=== PATIENT | male | born 1930 | race Caucasian/White ===

== ENCOUNTER 2017-03-01 21:42 | Emergency (ER) | payer MEDICARE, OTHER ==
[~2017-03-01] VITALS: Ht 162.6 cm; Wt 70.0 kg
[~2017-03-01 21:42] MED LIST: AZIT250T43 PO
[2017-03-01 22:39] VITALS: BP 135/83; PULSE 98; RESP 18; TEMP 98; O2SAT 98
--- NOTE | 2017-03-01 23:19 | PD ---
HPI Chief Complaint: Fall Time Seen by Provider: 22:50 Travel History International Travel<30 days: No Contact w/Intl Traveler<30days: No Traveled to known affect area: No History of Present Illness HPI 87yo M with PMH of dementia presents to the ED after pressing the life alert today. History is different from what triage note said from [facility]. Pt's care giving is with him and she said she was with him from 8am to 8pm today. Then he said he got out of his walker and was crawling in his garage but was not able to get up so press his life alert. He denies any fall and has no signs of trauma. Pt is AAOx2 and is at baseline mental status as per rn patient care. Denies any complaints. Denies any fever, chest pain, sob, n/v, abdominal pain, focal weakness or numbness. PFSH Past Medical History Blood Disorders: No Cancer: No Cardiovascular Problems: Yes (cabg) Chemotherapy: No Diminished Hearing: Yes Endocrine: No Genitourinary: Yes Hepatitis: Yes (HEP B [place] 1960) Immune Disorder: No Musculoskeletal: No Neurologic: No Psychiatric: No Reproductive: No Respiratory: No Radiation Therapy: No Tetanus Vaccination: < 5 Years Influenza Vaccination: No Past Surgical History Abdominal Surgery: No AICD: No Appendectomy: Yes Arteriovenous Shunt: No Cardiac Surgery: Yes (CABG 5 VESSELS) Ear Surgery: No Endocrine Surgery: No Eye Surgery: No Genitourinary Surgery: No Gynecologic Surgery: No Insulin Pump: No Joint Replacement: No Oral Surgery: No Pacemaker: No Thoracic Surgery: No Tonsillectomy: Yes Other Surgery: Yes (LUMP UNDER ARMPIT REMOVED (?)) Social History Alcohol Use: Yes (socially) Tobacco Use: No Substance Use: No Allergies-Medications (Allergen,Severity, Reaction): Coded Allergies: No Known Allergies (Verified , 03/01/17) Reported Meds & Prescriptions Reported Meds & Active Scripts Active No Active Prescriptions or Reported Medications Review of Systems Except as stated in HPI: all other systems reviewed are Neg Physical Exam Narrative GENERAL: 87yo M not in distress. SKIN: Focused skin assessment warm/dry. HEAD: Atraumatic. Normocephalic. EYES: Pupils equal and round. No scleral icterus. No injection or drainage. ENT: No nasal bleeding or discharge. Mucous membranes pink and moist. NECK: Trachea midline. No JVD. No midline cervical spine ttp. CARDIOVASCULAR: Regular rate and rhythm. No murmur appreciated. RESPIRATORY: No accessory muscle use. Clear to auscultation. Breath sounds equal bilaterally. GASTROINTESTINAL: Abdomen soft, non-tender, nondistended. No rebound tenderness or guarding. BACK: No midline ttp thoracic or lumbar spine. MUSCULOSKELETAL: No obvious deformities. No clubbing. No cyanosis. No edema. NEUROLOGICAL: AAOx2. Right eyelid more droopy than left but rn patient care said that is not new. Motor grossly within normal limits in all extremities. Sensation intact and equal. Normal speech. Data Data Last Documented VS Vital Signs Date Time Temp Pulse Resp B/P (MAP) Pulse Ox O2 Delivery O2 Flow Rate FiO2 03/01/17 22:39 98.0 98 18 135/83 (100) 98 Orders Orders Complete Blood Count With Diff (03/01/17 23:01) Basic Metabolic Panel (Bmp) (03/01/17 23:01) Creatine Kinase (Cpk) (03/01/17 23:01) Urinalysis - C+S If Indicated (03/02/17 00:10) Urine Culture (03/02/17 00:35) Nitrofurantoin Monohyd Macrocr (Macrobid (03/02/17 01:30) Labs Laboratory Tests Test 03/01/17 23:06 03/02/17 00:35 White Blood Count 12.3 TH/MM3 Red Blood Count 4.26 MIL/MM3 Hemoglobin 13.1 GM/DL Hematocrit 40.0 % Mean Corpuscular Volume 93.7 FL Mean Corpuscular Hemoglobin 30.7 PG Mean Corpuscular Hemoglobin Concent 32.7 % Red Cell Distribution Width 14.1 % Platelet Count 222 TH/MM3 Mean Platelet Volume 9.2 FL Neutrophils (%) (Auto) 84.1 % Lymphocytes (%) (Auto) 7.4 % Monocytes (%) (Auto) 7.7 % Eosinophils (%) (Auto) 0.5 % Basophils (%) (Auto) 0.3 % Neutrophils # (Auto) 10.4 TH/MM3 Lymphocytes # (Auto) 0.9 TH/MM3 Monocytes # (Auto) 0.9 TH/MM3 Eosinophils # (Auto) 0.1 TH/MM3 Basophils # (Auto) 0.0 TH/MM3 CBC Comment DIFF FINAL Differential Comment Blood Urea Nitrogen 23 MG/DL Creatinine 1.01 MG/DL Random Glucose 93 MG/DL Calcium Level 9.5 MG/DL Sodium Level 142 MEQ/L Potassium Level 4.1 MEQ/L Chloride Level 105 MEQ/L Carbon Dioxide Level 28.8 MEQ/L Anion Gap 8 MEQ/L Estimat Glomerular Filtration Rate 70 ML/MIN Total Creatine Kinase 141 U/L Urine Color YELLOW Urine Turbidity HAZY Urine pH 5.5 Urine Specific Rough [place] Ready 1.024 Urine Protein TRACE mg/dL Urine Glucose (UA) NEG mg/dL Urine Ketones 10 mg/dL Urine Occult Blood NEG Urine Nitrite NEG Urine Bilirubin NEG Urine Urobilinogen LESS THAN 2.0 MG/DL Urine Leukocyte Esterase LARGE Urine RBC 15 /hpf Urine WBC 50 /hpf Urine Amorphous Sediment RARE Urine Bacteria OCC /hpf Urine Hyaline Casts 5 /lpf Urine Mucus FEW /lpf Microscopic Urinalysis Comment CULTURE INDICATED MDM Medical Decision Making Medical Screen Exam Complete: Yes Emergency Medical Condition: Yes Interpretation(s) EKG: NSR 84bpm. LAD. No ST segment elevation or depression Differential Diagnosis Rhabdomyolysis vs. electrolyte abnormality vs. dehydration Narrative Course 87yo M with dementia here because he was not able to get up in his garage so press his life alert. Pt is well appearing and denies any fall. He is AAOx2 and as per rn patient care, is at his baseline mental status. Labs reviewed, mild leukocytosis at 12.3. BUN mildly elevated at 23. Pt can replace fluids orally. CPK is normal and creatinine is normal. UA positive for large leukocyte. WBC 50. Pt given first dose of macrobid. He is well appearing, will give prescriptions and have him follow up with PMD. Return precautions given. Diagnosis Primary Impression: UTI (urinary tract infection) Qualified Codes: N39.0 - Urinary tract infection, site not specified Patient Instructions: General Instructions Departure Forms: Tests/Procedures Additional Instructions: Please follow up with your primary care physician in 3-7 days. Return to the ED if symptoms worsen. Med/Other Pt SpecificInfo: Prescription(s) given Scripts Nitrofurantoin Monohydrate Macrocrystals (Macrobid) 100 Mg Cap 100 MG PO BID for Infection for 5 Days, CAP 0 Refills Prov: Jennifer Woods DO 03/02/17 Disposition: 01 DISCHARGE HOME Condition: Stable Jennifer Woods DO Mar 01, 2017 23:19
[2017-03-01 23:35] LABS: AUTOMATED NEUTROPHIL # 10.4 TH/MM3 (1.8-7.7); BASOPHIL % 0.3 % (0.0-2.0); EOSINOPHIL # 0.1 TH/MM3 (0-0.4); EOSINOPHIL % 0.5 % (0.0-4.0); HEMO FLAGS DIFF FINAL; LYMPH % 7.4 % (9.0-44.0); LYMPHOCYTE # 0.9 TH/MM3 (1.0-4.8); MEAN CELL VOLUME 93.7 FL (80.0-100.0); MEAN CORPUSCULAR HEMOGLOBIN 30.7 PG (27.0-34.0); MEAN CORPUSCULAR HGB CONC 32.7 % (32.0-36.0); MONO % 7.7 % (0.0-8.0); NEUT % 84.1 % (16.0-70.0); PLATELET COUNT 222 TH/MM3 (150-450); RED BLOOD COUNT 4.26 MIL/MM3 (4.50-5.90); RED CELL DISTRIBUTION WIDTH 14.1 % (11.6-17.2); WHITE BLOOD COUNT 12.3 TH/MM3 (4.0-11.0)
[2017-03-01 23:48] LABS: BICARBONATE 28.8 MEQ/L (21.0-32.0); POTASSIUM 4.1 MEQ/L (3.5-5.1)
[2017-03-02 01:14] LABS: BACTERIA, URINE OCC /hpf; BLOOD, URINE NEG (NEG); COMMENT (UR) CULTURE INDICATED; CULTURE IF INDICATED CULTURE INDICATED; GLUCOSE,URINE NEG (NEG); HYALINE CAST, URINE 5 /lpf (RARE); KETONE, URINE 10 mg/dL (NEG); MUCUS URINE FEW /lpf (OCC); NITRITE,URINE NEG (NEG); PH, URINE 5.5 (5.0-8.5); URINE COLOR YELLOW (YELLW/STRAW)
[2017-03-02] MEDS ORDERED: MACR100C2 PO (01:26)
[2017-03-02] MEDS ORDERED: NITROFURANTOIN MONOHYD MACROCR 100 MG CAP PO ONE (01:30)
--- NOTE | 2017-03-03 00:46 | EKG ---
Date Performed: 03/01/2017 Time Performed: 22:40:20 PTAGE: 87 years EKG: Sinus rhythm BORDERLINE LEFT AXIS DEVIATION MODERATE VOLTAGE CRITERIA FOR LVH, CONSIDER NORMAL VARIANT BORDERLINE ECG Compared to prior tracing no significant change DOCTOR: Saman Armendariz Interpretating Date/Time 03/03/2017 00:44:52
== END 2017-03-02 01:50 | disposition home or self-care (01) ==
LOC: NEPC 21:42
DX: N39.0 Urinary tract infection, site not specified (principal); F03.90 Unspecified dementia, unspecified severity, without behavioral disturbance, psychotic disturbance, mood disturbance, and anxiety; D72.829 Elevated white blood cell count, unspecified; Z95.1 Presence of aortocoronary bypass graft; Z86.19 Personal history of other infectious and parasitic diseases
CPT/HCPCS: 80048; 81001; 82550; 85025; 87086; 93005; 99283

== ENCOUNTER 2017-06-26 15:02 | Emergency (ER) | payer MEDICARE, OTHER ==
[~2017-06-26 15:02] MED LIST changes: -AZIT250T43 PO; +MACR100C2 PO
[2017-06-26 15:04] VITALS: BP 158/73; PULSE 98; RESP 18; TEMP 97.7; O2SAT 96
--- NOTE | 2017-06-26 15:30 | PD ---
HPI Chief Complaint: Cold / Flu Symptoms Time Seen by Provider: 15:20 Travel History International Travel<30 days: No Contact w/Intl Traveler<30days: No Traveled to known affect area: No History of Present Illness HPI This patient complains of cough and congestion. Duration is 2 days. Denies fever. Severity is moderate. 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) Immune Disorder: No Musculoskeletal: No Neurologic: No Psychiatric: No Reproductive: No Respiratory: No Radiation Therapy: No Past Surgical History Abdominal Surgery: No AICD: No Appendectomy: Yes Arteriovenous Shunt: No Cardiac Surgery: Yes (CABG 5 VESSELS) Ear Surgery: No Endocrine Surgery: No Eye Surgery: No Genitourinary Surgery: No Gynecologic Surgery: No Insulin Pump: No Joint Replacement: No Oral Surgery: No Pacemaker: No Thoracic Surgery: No Tonsillectomy: Yes Other Surgery: Yes (LUMP UNDER ARMPIT REMOVED (?)) Social History Alcohol Use: Yes (socially) Tobacco Use: No Substance Use: No Allergies-Medications (Allergen,Severity, Reaction): Coded Allergies: No Known Allergies (Verified Adverse Reaction, Unknown, 06/26/17) Reported Meds & Prescriptions Reported Meds & Active Scripts Active Macrobid (Nitrofurantoin Monoh/Nitrofur Macro) 100 Mg Cap 100 Mg PO BID 5 Days Review of Systems General / Constitutional: No: Fever HENT: No: Headaches Cardiovascular: No: Chest Pain or Discomfort Respiratory: Positive: Cough Physical Exam Narrative GENERAL: Hard of hearing, Well-nourished, well-developed patient in no apparent distress. SKIN: Focused skin assessment reveals no rash and nodules. Skin is Warm and dry. HEAD: Atraumatic. Normocephalic. EYES: Pupils equal and round. No scleral icterus. No injection or drainage. ENT: No nasal bleeding or discharge. Mucous membranes pink and moist. NECK: Trachea midline. No JVD. CARDIOVASCULAR: Regular rate and rhythm. No murmur appreciated. RESPIRATORY: No accessory muscle use. Scattered rhonchi throughout. Breath sounds equal bilaterally. GASTROINTESTINAL: Abdomen soft, non-tender, nondistended. Hepatic and splenic margins not palpable. MUSCULOSKELETAL: No obvious deformities. No clubbing. No cyanosis. No edema. NEUROLOGICAL: Awake and alert. No obvious cranial nerve deficits. Motor grossly within normal limits. Normal speech. PSYCHIATRIC: Appropriate mood and affect; insight and judgment normal. Data Data Last Documented VS Vital Signs Date Time Temp Pulse Resp B/P (MAP) Pulse Ox O2 Delivery O2 Flow Rate FiO2 06/26/17 15:28 95 Room Air 06/26/17 15:04 97.7 98 18 158/73 (101) Orders Orders Chest, Single Ap (06/26/17 ) Influenzae A/B Antigen (06/26/17 15:26) MDM Medical Decision Making Medical Screen Exam Complete: Yes Emergency Medical Condition: Yes Medical Record Reviewed: Yes Differential Diagnosis Flu syndrome, bronchitis, pneumonia Narrative Course I have reviewed the patient's electronic medical record. I reviewed his chest x-ray which shows some atelectasis but nothing acute Influenza swab is negative I think he has viral illness. He is minimally symptomatic at this point supportive care discussed and primary care recommended follow-up. She will bring him back if he worsens Diagnosis Primary Impression: Acute viral bronchitis Additional Instructions: The patient was advised to follow up with their physician and return if they worsen. Med/Other Pt SpecificInfo: Other Disposition: 01 DISCHARGE HOME Condition: Stable Cash Ibrahim MD Jun 26, 2017 15:30
--- NOTE | 2017-06-26 16:03 | RADRPT ---
EXAM DATE/TIME: 06/26/2017 15:42 [facility] COMPARISON: CHEST SINGLE AP, October 30, 2015, 19:41. INDICATIONS : Cough. MEDICAL HISTORY : Hypertension. SURGICAL HISTORY : CABG. ENCOUNTER: Initial ACUITY: 4 - 6 days PAIN SCORE: Non-responsive. LOCATION: Bilateral chest FINDINGS: There is persistent elevation left hemidiaphragm which is stable compared to 2016. There is some plat elike atelectasis in the left midlung. The right lung is clear. No effusions or pulmonary edema. Ther e is evidence of previous cardiothoracic surgery. The heart size is stable. No significant changes. CONCLUSION: 1. Platelike atelectasis in the left midlung. 2. Stable moderate elevation left hemidiaphragm. 3. No new or significant changes compared to the prior study. Lizandro Villaseñor MD on June 26, 2017 at 16:00 Board Certified Radiologist. This report was verified electronically.
== END 2017-06-26 17:07 | disposition home or self-care (01) ==
LOC: NEPD 15:02
DX: J20.8 Acute bronchitis due to other specified organisms (principal); B97.89 Other viral agents as the cause of diseases classified elsewhere
CPT/HCPCS: 71010; 87804; 99283

== ENCOUNTER 2017-07-06 12:14 | Emergency (ER) | payer MEDICARE, OTHER ==
[~2017-07-06] VITALS: Ht 182.9 cm; Wt 79.5 kg
[2017-07-06 12:15] VITALS: BP 128/59; PULSE 86; RESP 18; TEMP 98.3; O2SAT 95
[2017-07-06 12:29] VITALS: BP 118/61; PULSE 80; RESP 18; O2SAT 97
[2017-07-06] MEDS ORDERED: TAMS0.4C4 PO (12:41)
[2017-07-06] MEDS ORDERED: BACT800T5 PO (12:53)
--- NOTE | 2017-07-06 13:11 | PD ---
HPI Chief Complaint: Skin Problem Time Seen by Provider: 12:28 Travel History International Travel<30 days: No Contact w/Intl Traveler<30days: No Traveled to known affect area: No History of Present Illness HPI 87-year-old male that presents to the ED for evaluation of possible sore to the left foot. Patient is a chronic history of dementia and she is somewhat of a poor historian. He cannot really tell me how long she's had this sore. He comes here with caregiver who is well aware of the patient and has noted the sore today. He has not been noted before. Per caregiver patient does ambulate a lot barefooted at home and sometimes he stumbles but he has minimal complaints of pain so they have not really been concerned until today when they noted that the bump was erythematous and he did complain of some pain to the left leg. Patient himself denies any injury. No history of diabetes. No history of MRSA. No IV drug abuse. Denies any fevers chills or sweats. Patient was seen here recently for a bronchitis which per patient feels better. He has no allergies to medication. She has not seen anybody for this. [facility] will not see him for a month. History is limited because of patient's mental status. 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) Immune Disorder: No Musculoskeletal: No Neurologic: No Psychiatric: No Reproductive: No Respiratory: No Immunizations Current: Yes Radiation Therapy: No Tetanus Vaccination: < 5 Years Past Surgical History Abdominal Surgery: No AICD: No Appendectomy: Yes Arteriovenous Shunt: No Cardiac Surgery: Yes (CABG 5 VESSELS) Ear Surgery: No Endocrine Surgery: No Eye Surgery: No Genitourinary Surgery: No Gynecologic Surgery: No Insulin Pump: No Joint Replacement: No Oral Surgery: No Pacemaker: No Thoracic Surgery: No Tonsillectomy: Yes Other Surgery: Yes (LUMP UNDER ARMPIT REMOVED (?)) Social History Alcohol Use: Yes (socially) Tobacco Use: No Substance Use: No Allergies-Medications (Allergen,Severity, Reaction): Coded Allergies: No Known Allergies (Verified Adverse Reaction, Unknown, 07/06/17) Reported Meds & Prescriptions Reported Meds & Active Scripts Active Bactrim DS (Sulfamethoxazole-Trimethoprim) 800-160 Mg Tab 1 Tab PO BID 10 Days Reported Tamsulosin (Tamsulosin HCl) 0.4 Mg Cap 0.4 Mg PO HS Review of Systems ROS Limitations: Poor Historian Except as stated in HPI: all other systems reviewed are Neg Physical Exam Exam Limitations: Poor Historian Narrative GENERAL: SKIN: Warm and dry. HEAD: Atraumatic. Normocephalic. EYES: Pupils equal and round. No scleral icterus. No injection or drainage. ENT: No nasal bleeding or discharge. Mucous membranes pink and moist. Tongue is midline. No uvula deviation. NECK: Trachea midline. No JVD. CARDIOVASCULAR: Regular rate and rhythm. RESPIRATORY: No accessory muscle use. Clear to auscultation. Breath sounds equal bilaterally. GASTROINTESTINAL: Abdomen soft, non-tender, nondistended. Hepatic and splenic margins not palpable. MUSCULOSKELETAL: Extremities without clubbing, cyanosis, or edema. No obvious deformities. Full range of motion of the upper and lower extremities bilaterally. Pupils pulses bilaterally. Patient does have what appears to be a infected callus versus blister versus small abscess on the left foot. No around the plantar aspect of the fifth toe. Slightly painful patient does not appear to be in severe pain. He does have an area of erythema surrounding this blister/abscess. Purulence noted. No drainage noted. Less than 2 cm in diameter. Patient does have a callus that appears to be old right next to this. NEUROLOGICAL: Awake and alert. No obvious cranial nerve deficits. Motor grossly within normal limits. Five out of 5 muscle strength in the arms and legs. Normal speech. PSYCHIATRIC: Appropriate mood and affect; insight and judgment normal. Data Data Last Documented VS Vital Signs Date Time Temp Pulse Resp B/P (MAP) Pulse Ox O2 Delivery O2 Flow Rate FiO2 07/06/17 12:35 78 18 07/06/17 12:29 118/61 (80) 97 Room Air 07/06/17 12:15 98.3 Orders Orders Foot, Complete ([id number]) (07/06/17 ) Wound Culture And Gram Stain (07/06/17 12:39) MDM Medical Decision Making Medical Screen Exam Complete: Yes Emergency Medical Condition: Yes Medical Record Reviewed: Yes Interpretation(s) X-ray left foot show no sign of bony injury. Differential Diagnosis Abscess versus infected toe versus fracture Narrative Course 87-year-old male that presents to the ED for evaluation of possible infection to his left foot. Patient was properly examined and was found to have signs and symptoms consistent with appears to be a small abscess. Unclear etiology. X-ray was ordered to tule out any sign of bony injury. X-ray was negative for this. Patient was reassured. This time recommendation is for started on Bactrim. After explained procedure to the patient and he agreed to it abscess was incised and drained by me. Culture was taken. Purulence was removed. Wound care was done by ED nurse. Patient was told to do wound care at home. Tylenol for pain. Follow with PCP. See ED worsening symptoms. Caregiver was at bedside and is aware of plan. Diagnosis Primary Impression: Abscess Patient Instructions: General Instructions Additional Instructions: Motrin or tylenol for pain. Take antibiotic as prescribed. Wound care every day. Follow up with PCP. See ED worsening symptoms. Med/Other Pt SpecificInfo: Prescription(s) given, Wound Care Scripts Sulfamethoxazole-Trimethoprim (Bactrim DS) 800-160 Mg Tab 1 TAB PO BID for Infection for 10 Days, #20 TAB 0 Refills Prov: Jennifer Woods DO 07/06/17 Disposition: 01 DISCHARGE HOME Condition: Stable Simon Baker Jul 06, 2017 13:11
--- NOTE | 2017-07-06 13:36 | RADRPT ---
EXAM DATE/TIME: 07/06/2017 12:50 [facility] COMPARISON: No previous studies available for comparison. INDICATIONS : Left foot pain. MEDICAL HISTORY : Hypertension. SURGICAL HISTORY : CABG. ENCOUNTER: Initial ACUITY: 3 days PAIN SCORE: 3/10 LOCATION: Left foot, under 5th digit. FINDINGS: There is no evidence of acute fracture. Bony mineralization is normal. Joint spaces are maintained. N o foreign body is identified. CONCLUSION: 1. Negative examination of the foot. Juan Stout MD on July 06, 2017 at 13:32 Board Certified Radiologist. This report was verified electronically.
== END 2017-07-06 14:39 | disposition home or self-care (01) ==
LOC: NEPC 12:14
DX: L02.612 Cutaneous abscess of left foot (principal); F03.90 Unspecified dementia, unspecified severity, without behavioral disturbance, psychotic disturbance, mood disturbance, and anxiety
CPT/HCPCS: 10060; 73630; 87070; 87205